=== PATIENT | male | born 1990 | race Caucasian/White ===

== ENCOUNTER 2022-08-19 21:48 | Emergency (ER) | payer OTHER ==
[~2022-08-19] VITALS: Ht 172.7 cm; Wt 83.9 kg
== END 2022-08-20 01:10 | disposition home or self-care (01) ==
LOC: ED 21:48
DX: R06.00 Dyspnea, unspecified (principal); R25.1 Tremor, unspecified; R51.9 Headache, unspecified

== ENCOUNTER 2022-08-20 03:24 | Emergency (ER) | payer SELFPAY | END 2022-08-20 04:10 | disposition home or self-care (01) | LOC: ED 03:24 | DX: F41.9 Anxiety disorder, unspecified (principal) ==